=== PATIENT | female | born 1975 | race American Indian/Alaskan Native ===

== ENCOUNTER 2021-07-12 10:10 | Emergency (ER) | payer BC ==
[2021-07-12 11:27] LABS: Basophils % (Auto) 0.6 % (0.0-1.8); Eosinophils # (Auto) 0.1 K/mm3 (0.0-0.4); Eosinophils % (Auto) 0.9 % (0.0-4.3); Hematocrit 39.9 % (30.3-42.9); Hemoglobin 12.4 gm/dl (10.1-14.3); Lymphocytes # (Auto) 1.6 K/mm3 (1.2-5.4); Mean Corpuscular HGB Conc 31 % (30-34); Mean Corpuscular Volume 88 fl (79-97); Monocytes # (Auto) 0.5 K/mm3 (0.0-0.8); Monocytes % (Auto) 7.5 % (0.0-7.3); Platelet Count 287 K/mm3 (140-440); Red Blood Count 4.52 M/mm3 (3.65-5.03); Red Cell Distribution Width 16.6 % (13.2-15.2)
[2021-07-12 11:48] LABS: Alanine Aminotransferase 13 units/L (7-56); Albumin 3.7 g/dL (3.9-5); Blood Urea Nitrogen 9 mg/dL (7-17); Calcium 8.9 mg/dL (8.4-10.2); Hemolysis Index 12
[2021-07-12 11:49] LABS: BUN/Creatinine Ratio 18
--- NOTE | 2021-07-12 13:00 | Emergency Department Report ---
ED HPI - General Chief complaint: Vaginal Bleeding Stated complaint: BLEEDING /POSSIBLE MISCARRIAGE Time Seen by Provider: 07/12/21 11:51 Source: patient Mode of arrival: Ambulatory Limitations: No Limitations - History of Present Illness Initial comments: This is a 46-year-old female nontoxic, well nourished in appearance, no acute signs of distress presents to the ED with c/o of vaginal bleeding x1 day. Patient states she is currently about 8 weeks . Patient stated yesterday she noticed some spotting this morning x3 occasions and primarily only when she wipes after the restroom. Patient denies any abdominal or pelvic pain. Patient denies any vaginal discharge or foul odor. Patient denies any nausea, vomiting, chest pain, shortness of breathe, fever, chills, headache, stiff neck, numbness, tingling. Patient denies any urinary symptoms. Patient denies any allergies or PMH. -: days(s) Radiation: none Severity scale (0 -10): 0 Improves with: none Worsens with: none Associated symptoms: vaginal bleeding. denies: nausea/vomiting, vaginal discharge, abdominal pain, dysuria, headache, vision changes, malaise, dysparuenia, rash, seizure, shortness of breath, syncope, weakness Vaginal bleeding: light :: Yes Number of weeks : 8 Pre- care: followed by OB - Related Data Previous Rx's Medication Instructions Recorded Last Taken Type Nitrofurantoin Antelope/M-Cryst 100 mg PO Q12HR #14 capsule 07/12/21 Unknown Rx [Macrobid CAP] Allergies Allergy/AdvReac Type Severity Reaction Status Date / Time No Known Allergies Allergy Verified 07/12/21 10:31 ED Review of Systems ROS: Stated complaint: BLEEDING /POSSIBLE MISCARRIAGE Other details as noted in HPI Comment: All other systems reviewed and negative Constitutional: denies: chills, fever Eyes: denies: eye pain, eye discharge, vision change ENT: denies: ear pain, throat pain Respiratory: denies: cough, shortness of breath, wheezing Cardiovascular: denies: chest pain, palpitations Endocrine: no symptoms reported Gastrointestinal: denies: abdominal pain, nausea, diarrhea Genitourinary: abnormal menses. denies: urgency, dysuria, discharge Musculoskeletal: denies: back pain, joint swelling, arthralgia Skin: denies: rash, lesions Neurological: denies: headache, weakness, paresthesias Psychiatric: denies: anxiety, depression Hematological/Lymphatic: denies: easy bleeding, easy bruising ED Past Medical Hx - Past Medical History Previous Medical History?: Yes - Surgical History Past Surgical History?: No - Medications Home Medications: Home Medications Medication Instructions Recorded Confirmed Last Taken Type Nitrofurantoin Antelope/M-Cryst 100 mg PO Q12HR #14 capsule 07/12/21 Unknown Rx [Macrobid CAP] ED Physical Exam - General Limitations: No Limitations General appearance: alert, in no apparent distress - Head Head exam: Present: atraumatic, normocephalic - Eye Eye exam: Present: normal appearance - Neck Neck exam: Present: normal inspection, full ROM. Absent: lymphadenopathy - Respiratory Respiratory exam: Absent: respiratory distress - Cardiovascular Cardiovascular Exam: Present: regular rate - GI/Abdominal GI/Abdominal exam: Present: soft, normal bowel sounds. Absent: distended, tenderness, guarding, rebound, rigid, diminished bowel sounds - Extremities Exam Extremities exam: Present: full ROM - Back Exam Back exam: Present: normal inspection, full ROM. Absent: tenderness, CVA tenderness (R), CVA tenderness (L), muscle spasm, paraspinal tenderness, vertebral tenderness, rash noted - Neurological Exam Neurological exam: Present: alert, oriented X3, normal gait - Psychiatric Psychiatric exam: Present: normal affect, normal mood - Skin Skin exam: Present: warm, dry, intact, normal color. Absent: rash ED Course Vital Signs 07/12/21 07/12/21 07/12/21 10:31 14:51 14:52 Temperature 98.7 F 98.4 F Pulse Rate 64 83 Respiratory 16 20 Rate Blood Pressure 165/86 122/74 [Left] O2 Sat by Pulse 96 100 99 Oximetry - Reevaluation(s) Reevaluation #1: 07/12/21 13:00 Patient is speaking in full sentences with no signs of distress noted. ED Medical Decision Making - Lab Data Result diagrams: 07/12/21 10:55 07/12/21 10:55 Lab Results 07/12/21 07/12/21 07/12/21 Range/Units 10:54 10:54 10:55 WBC 6.5 (4.5-11.0) K/mm3 RBC 4.52 (3.65-5.03) M/mm3 Hgb 12.4 (10.1-14.3) gm/dl Hct 39.9 (30.3-42.9) % MCV 88 (79-97) fl MCH 27 L (28-32) pg MCHC 31 (30-34) % RDW 16.6 H (13.2-15.2) % Plt Count 287 (140-440) K/mm3 Lymph % (Auto) 24.0 (13.4-35.0) % Antelope % (Auto) 7.5 H (0.0-7.3) % Eos % (Auto) 0.9 (0.0-4.3) % Baso % (Auto) 0.6 (0.0-1.8) % Lymph # (Auto) 1.6 (1.2-5.4) K/mm3 Antelope # (Auto) 0.5 (0.0-0.8) K/mm3 Eos # (Auto) 0.1 (0.0-0.4) K/mm3 Baso # (Auto) 0.0 (0.0-0.1) K/mm3 Seg Neutrophils % 67.0 (40.0-70.0) % Seg Neutrophils # 4.3 (1.8-7.7) K/mm3 Sodium (137-145) mmol/L Potassium (3.6-5.0) mmol/L Chloride (98-107) mmol/L Carbon Dioxide (22-30) mmol/L Anion Gap mmol/L BUN (7-17) mg/dL Creatinine (0.6-1.2) mg/dL Estimated GFR ml/min BUN/Creatinine Ratio % Glucose (65-100) mg/dL Calcium (8.4-10.2) mg/dL Total Bilirubin (0.1-1.2) mg/dL AST (5-40) units/L ALT (7-56) units/L Alkaline Phosphatase (35-129) units/L Total Protein (6.3-8.2) g/dL Albumin (3.9-5) g/dL Albumin/Globulin Ratio % HCG, Quant 4536 H (0-4) mIU/mL Urine Color (Yellow) Urine Turbidity (Clear) Urine pH (5.0-7.0) Ur Specific [place] (1.003-1.030) Urine Protein (Negative) mg/dL Urine Glucose (UA) (Negative) mg/dL Urine Ketones (Negative) mg/dL Urine Blood (Negative) Urine Nitrite (Negative) Urine Bilirubin (Negative) Urine Urobilinogen (<2.0) mg/dL Ur Leukocyte Esterase (Negative) Urine WBC (Auto) (0.0-6.0) /HPF Urine RBC (Auto) (0.0-6.0) /HPF U Epithel Cells (Auto) (0-13.0) /HPF Urine Bacteria (Auto) (Negative) /HPF Urine Mucus /HPF Blood Type B POSITIVE 07/12/21 07/12/21 Range/Units 10:55 12:02 WBC (4.5-11.0) K/mm3 RBC (3.65-5.03) M/mm3 Hgb (10.1-14.3) gm/dl Hct (30.3-42.9) % MCV (79-97) fl MCH (28-32) pg MCHC (30-34) % RDW (13.2-15.2) % Plt Count (140-440) K/mm3 Lymph % (Auto) (13.4-35.0) % Antelope % (Auto) (0.0-7.3) % Eos % (Auto) (0.0-4.3) % Baso % (Auto) (0.0-1.8) % Lymph # (Auto) (1.2-5.4) K/mm3 Antelope # (Auto) (0.0-0.8) K/mm3 Eos # (Auto) (0.0-0.4) K/mm3 Baso # (Auto) (0.0-0.1) K/mm3 Seg Neutrophils % (40.0-70.0) % Seg Neutrophils # (1.8-7.7) K/mm3 Sodium 140 (137-145) mmol/L Potassium 4.1 (3.6-5.0) mmol/L Chloride 105.4 (98-107) mmol/L Carbon Dioxide 21 L (22-30) mmol/L Anion Gap 18 mmol/L BUN 9 (7-17) mg/dL Creatinine 0.5 L (0.6-1.2) mg/dL Estimated GFR > 60 ml/min BUN/Creatinine Ratio 18 % Glucose 95 (65-100) mg/dL Calcium 8.9 (8.4-10.2) mg/dL Total Bilirubin < 0.20 (0.1-1.2) mg/dL AST 19 (5-40) units/L ALT 13 (7-56) units/L Alkaline Phosphatase 61 (35-129) units/L Total Protein 7.3 (6.3-8.2) g/dL Albumin 3.7 L (3.9-5) g/dL Albumin/Globulin Ratio 1.0 % HCG, Quant (0-4) mIU/mL Urine Color Yellow (Yellow) Urine Turbidity Slightly-cloudy (Clear) Urine pH 5.0 (5.0-7.0) Ur Specific [place] 1.023 (1.003-1.030) Urine Protein 30 mg/dl (Negative) mg/dL Urine Glucose (UA) Neg (Negative) mg/dL Urine Ketones Neg (Negative) mg/dL Urine Blood Lg (Negative) Urine Nitrite Neg (Negative) Urine Bilirubin Neg (Negative) Urine Urobilinogen < 2.0 (<2.0) mg/dL Ur Leukocyte Esterase Neg (Negative) Urine WBC (Auto) 13.0 H (0.0-6.0) /HPF Urine RBC (Auto) > 182.0 (0.0-6.0) /HPF U Epithel Cells (Auto) 4.0 (0-13.0) /HPF Urine Bacteria (Auto) 1+ (Negative) /HPF Urine Mucus Few /HPF Blood Type - Radiology Data [facility] [address] [place] [address] Ultrasound Report Signed Patient: SLIM CINTRON MR#: [id number] 8 : 1975 Acct:[id number] Age/Sex: 46 / F ADM Date: 07/12/21 Loc: ED Attending Dr: Ordering Physician: HECTOR JIMENEZ NP Date of Service: 07/12/21 Procedure(s): US OB <= 14 weeks fetus Accession Number(s): [id number] cc: HECTOR JIMENEZ NP OB Ultrasound HISTORY: pelvic pain and vaginal bleeding. TECHNIQUE: Grayscale and color imaging performed. COMPARISON: None FINDINGS: Endovaginal and transabdominal technique utilized. Uterus measures 10.8 x 5.9 x 5.8 cm. There is an intrauterine gestational sac with mean diameter of 2.4 cm corresponding with an EGA of 7 weeks 3 days. pole is visualized with crown-rump length of 5 mm corresponding with an EGA of 6 weeks and 2 days. cardiac activity is present with heart rate of 144 bpm. No yolk sac identified. Overall EGA of 6 weeks and 6 days with estimated delivery date of 03/01/2022. Left ovary is unremarkable. Right ovary is not visualized because there are shadowing fibroids the largest of which measures 4.3 cm in the uterine body. No pelvic free fluid identified. IMPRESSION: 1. Single viable intrauterine gestation as above. 2. Uterine fibroids. Right ovary not visualized because of shadowing caused by the fibroids per the vacuum tank tender. Signer Name: Chacho Zee MD Signed: 07/12/2021 1:38 PM Workstation Name: [id number] Transcribed By: RADHA Dictated By: Chacho Zee MD Electronically Authenticated By: Chacho Zee MD Signed Date/Time: 07/12/211337 DD/ 35 TD/TT: [place] [address] Ultrasound Report Signed Patient: SLIM CINTRON MR#: [id number] 8 : 1975 Acct:[id number] Age/Sex: 46 / F ADM Date: 07/12/21 Loc: ED Attending Dr: Ordering Physician: HECTOR JIMENEZ NP Date of Service: 07/12/21 Procedure(s): US OB transvaginal Accession Number(s): [id number] cc: HECTOR JIMENEZ NP OB Ultrasound HISTORY: pelvic pain and vaginal bleeding. TECHNIQUE: Grayscale and color imaging performed. COMPARISON: None FINDINGS: Endovaginal and transabdominal technique utilized. Uterus measures 10.8 x 5.9 x 5.8 cm. There is an intrauterine gestational sac with mean diameter of 2.4 cm corresponding with an EGA of 7 weeks 3 days. pole is visualized with crown-rump length of 5 mm corresponding with an EGA of 6 weeks and 2 days. cardiac activity is present with heart rate of 144 bpm. No yolk sac identified. Overall EGA of 6 weeks and 6 days with estimated delivery date of 03/01/2022. Left ovary is unremarkable. Right ovary is not visualized because there are shadowing fibroids the largest of which measures 4.3 cm in the uterine body. No pelvic free fluid identified. IMPRESSION: 1. Single viable intrauterine gestation as above. 2. Uterine fibroids. Right ovary not visualized because of shadowing caused by the fibroids per the vacuum tank tender. Signer Name: Chacho Zee MD Signed: 07/12/2021 1:38 PM Workstation Name: [id number] Transcribed By: RADHA Dictated By: Chacho Zee MD Electronically Authenticated By: Chacho Zee MD Signed Date/Time: 07/12/211337 DD/ 35 TD/TT: - Medical Decision Making This is a 46-year-old female presents with threatened miscarriage and UTI. Patient is stable and was examined by me. Normal abdominal exam. US OB obtained and dictated by the radiologist. Ua obtained. Quantative serum test obtained. Patient notified of the US report with no questions noted by the patient. Patient was instructed f/u with [facility] in 3-5 days. RH factor positive. Labs within normal limits. At time of discharge, the patient does not seem toxic or ill in appearance. No acute signs of distress noted. Patient agrees to discharge treatment plan of care. No further questions noted by the patient. Critical care attestation.: If time is entered above; I have spent that time in minutes in the direct care of this critically ill patient, excluding procedure time. ED Disposition Clinical Impression: Threatened miscarriage UTI (urinary tract infection) Qualifiers: Urinary tract infection type: acute cystitis Hematuria presence: with hematuria Qualified Code(s): N30.01 - Acute cystitis with hematuria Disposition: HOME / SELF CARE / HOMELESS Is pt being admited?: No Does the pt Need Aspirin: No Condition: Stable Instructions: Threatened Miscarriage Additional Instructions: Follow-up with a OBGYN doctor in 3-5 days or if symptoms worsen and continue return to emergency room as soon as possible. Prescriptions: Nitrofurantoin Antelope/M-Cryst [Macrobid CAP] 100 mg PO Q12HR #14 capsule Referrals: KAMLA MACEDO MD [Primary Care Provider] - 3-5 Days BASSAM FITZGERALD MD [Staff Physician] - 3-5 Days Forms: Work/School Release Form(ED) Time of Disposition: 15:42
--- NOTE | 2021-07-12 13:43 | Ultrasound Report ---
OB Ultrasound HISTORY: pelvic pain and vaginal bleeding. TECHNIQUE: Grayscale and color imaging performed. COMPARISON: None FINDINGS: Endovaginal and transabdominal technique utilized. Uterus measures 10.8 x 5.9 x 5.8 cm. There is an intrauterine gestational sac with mean diameter of 2 .4 cm corresponding with an EGA of 7 weeks 3 days. pole is visualized with crown-rump length of 5 mm corresponding with an EGA of 6 weeks and 2 days. cardiac activity is present with heart r ate of 144 bpm. No yolk sac identified. Overall EGA of 6 weeks and 6 days with estimated delivery christine e of 03/01/2022. Left ovary is unremarkable. Right ovary is not visualized because there are shadowing fibroids the la rgest of which measures 4.3 cm in the uterine body. No pelvic free fluid identified. IMPRESSION: 1. Single viable intrauterine gestation as above. 2. Uterine fibroids. Right ovary not visualized because of shadowing caused by the fibroids per the s onographer. Signer Name: Chacho Zee MD Signed: 07/12/2021 1:38 PM Workstation Name: [id number]
[2021-07-12 13:56] LABS: Bacteria,Urine 1+ /HPF (Negative); Bilirubin,Urine NEG (Negative); Blood,Urine LG (Negative); Color,Urine Yellow (Yellow); Mucus,Urine FEW /HPF; Urobilinogen,Urine < 2.0 mg/dL (<2.0)
[2021-07-12 13:58] LABS: RBC,Urine > 182.0 /HPF (0.0-6.0)
[2021-07-12 14:56] VITALS: BP 122/74
== END 2021-07-12 15:49 | disposition home or self-care (01) ==
LOC: ED 10:10
DX: O20.0 Threatened abortion (principal); O23.41 Unspecified infection of urinary tract in pregnancy, first trimester; N39.0 Urinary tract infection, site not specified; Z3A.01 Less than 8 weeks gestation of pregnancy
CPT/HCPCS: 36415; 76801; 76817; 80053; 81001; 84702; 85025; 86900; 86901; 87086; 99284